=== PATIENT | male | born 1990 | race African-American/Black ===

== ENCOUNTER 2016-05-04 07:18 | Emergency (ER) | payer MEDICAID | END 2016-05-04 08:07 | disposition home or self-care (01) | LOC: D.ER 07:18 | DX: J06.9 Acute upper respiratory infection, unspecified (principal) ==

== ENCOUNTER 2016-07-02 08:26 | Emergency (ER) | payer MEDICAID | END 2016-07-02 10:55 | disposition left against medical advice (07) | LOC: D.ER 08:26 | DX: R05 Cough (principal) ==

== ENCOUNTER 2018-10-01 11:05 | Emergency (ER) | payer MEDICAID ==
[~2018-10-01] VITALS: Ht 180.3 cm; Wt 94.5 kg
[2018-10-01 11:44] VITALS: Ht 180.3 cm; Wt 94.5 kg
[2018-10-01] MEDS ORDERED: ULTRAM50 MG PO (12:44)
[2018-10-01] MEDS ORDERED: ALBUTEROL SULF8.5 GM INH (12:44)
[2018-10-01 13:12] VITALS: BP 121/94
== END 2018-10-01 13:12 | disposition home or self-care (01) ==
LOC: D.ER 11:05
DX: R06.2 Wheezing (principal); M25.572 Pain in left ankle and joints of left foot

== ENCOUNTER 2019-06-27 17:09 | Emergency (ER) | payer OTHER ==
[~2019-06-27] VITALS: Ht 180.3 cm; Wt 90.9 kg
[~2019-06-27 17:09] MED LIST: ALBUTEROL SULF8.5 GM INH; ULTRAM50 MG PO
[2019-06-27 17:10] VITALS: BP 121/82; Ht 180.3 cm; Wt 90.9 kg
== END 2019-06-27 19:18 | disposition home or self-care (01) ==
LOC: D.ER 17:09
DX: F10.129 Alcohol abuse with intoxication, unspecified (principal); Y90.9 Presence of alcohol in blood, level not specified